=== PATIENT | female | born 1980 | race Two or more races ===

== ENCOUNTER 2016-09-25 19:54 | Inpatient (IN) | payer MEDICAID ==
[~2016-09-25] VITALS: Ht 157.5 cm; Wt 95.5 kg
[2016-09-25] MEDS ORDERED: OXYTOCIN 30U/ 0.9% NaCL 500ML 500 ML IV ONE (20:03)
[2016-09-25] MEDS: D5%-LACTATED RINGERS 1,000 ML IV SCH (20:03)
[2016-09-25] MEDS: LACTATED RINGERS 1,000 ML IV SCH ×4 (20:17→22:17)
[2016-09-25] MEDS ORDERED: NEWBORN KIT ONE (20:26)
[2016-09-25] MEDS ORDERED: FENTANYL PF 100 MCG/2ML IV PRN (20:30)
[2016-09-25] MEDS ORDERED: FENTANYL PF 100 MCG/2ML IVPush PRN (20:30)
[2016-09-25] MEDS ORDERED: PLEASE ENTER HEIGHT AND WEIGHT MC SCH (20:30)
[2016-09-25] MEDS ORDERED: CALCIUM CARBONATE 500 MG TAB.CHEW PO PRN (20:30)
[2016-09-25] MEDS ORDERED: ONDANSETRON 2MG/ML, 2ML IVPush PRN (20:30)
[2016-09-25] MEDS ORDERED: PLEASE ENTER ALLERGIES MC SCH ×2 (20:30)
[2016-09-25] MEDS ORDERED: LIDOCAINE 1%, 20ML ONE (20:33)
[2016-09-25] MEDS ORDERED: MISOPROSTOL 200 MCG TABLET ONE (20:33)
[2016-09-25] MEDS ORDERED: LIDOCAINE/PF 1.5%-EPI 1:200K, 30ML ONE (20:40)
[2016-09-25 21:16] VITALS: BP 131/82
[2016-09-25] MEDS ORDERED: FENTANYL/BUPIV./NS/PF 250 ML EPIDCONT SCH ×2 (21:21→22:07)
[2016-09-25] MEDS ORDERED: LACTATED RINGERS 1,000 ML IVBOLUS PRN ×2 (21:30→22:30)
[2016-09-25] MEDS ORDERED: FENTANYL/BUPIV./NS/PF 250 ML EPIDCONT ONE (22:01)
[2016-09-26] MEDS ORDERED: IBUPROFEN 800 MG TABLET ONE (00:29)
[2016-09-26] MEDS: IBUPROFEN 800 MG TABLET PO PRN ×3 (00:35→23:36)
[2016-09-26 01:30] VITALS: BP 126/71
[2016-09-26 03:15] VITALS: BP 106/66
[2016-09-26] MEDS ORDERED: OXYTOCIN 30U/ 0.9% NaCL 500ML 500 ML ONE (03:35)
[2016-09-26] MEDS: D5%-LACTATED RINGERS 1,000 ML IV SCH (04:03)
[2016-09-26] MEDS: LACTATED RINGERS 1,000 ML IV SCH ×2 (05:21→06:07)
[2016-09-26 06:40] VITALS: BP 108/71
[2016-09-26] MEDS ORDERED: OXYTOCIN 30U/ 0.9% NaCL 500ML 500 ML IV SCH (15:54)
[2016-09-26] MEDS ORDERED: ACETAMINOPHEN 325 MG TABLET PO PRN (16:00)
[2016-09-26] MEDS ORDERED: MISOPROSTOL 200 MCG TABLET PR PRN (16:00)
[2016-09-26] MEDS ORDERED: OXYcodone IR 5MG TABLET PO PRN ×2 (16:00)
[2016-09-26] MEDS ORDERED: CALCIUM CARBONATE 500 MG TAB.CHEW PO PRN (16:00)
[2016-09-26] MEDS ORDERED: METHYLERGONOVINE 0.2 MG/ML IM PRN (16:00)
[2016-09-26 19:34] VITALS: BP 108/68
[2016-09-26] MEDS ORDERED: DIPH,PERTUSS(ACELL),TET VAC/PF NC IM-VACC ONE (23:30)
[2016-09-26] MEDS: DOCUSATE 100 MG CAPSULE PO PRN (23:36)
[2016-09-27 07:58] VITALS: BP 120/68
[2016-09-27] MEDS ORDERED: PRENATAL VIT/IRON/FA 1 EACH TABLET PO SCH (09:00)
[2016-09-27] MEDS: DOCUSATE 100 MG CAPSULE PO PRN (09:21)
[2016-09-27] MEDS: IBUPROFEN 800 MG TABLET PO PRN (09:21)
[2016-09-27] MEDS ORDERED: IBUP-1222 PO (10:40)
== END 2016-09-27 16:10 | disposition home or self-care (01) | DRG 774 ==
LOC: LDOP 19:54 → LDIP 20:08 → 2NW 09-26 01:24
PROVIDERS: ADMIT Obstetrics & Gynecology Gynecology; ATTEND Obstetrics & Gynecology Gynecology
PROC: 10E0XZZ Delivery of Products of Conception, External Approach (ICD-10-PCS; principal; 2016-09-25)
PROC: 00HU33Z Insertion of Infusion Device into Spinal Canal, Percutaneous Approach (ICD-10-PCS; 2016-09-25)
PROC: 3E0R3CZ (ICD-10-PCS; 2016-09-25)
DX: O76 Abnormality in fetal heart rate and rhythm complicating labor and delivery (principal); O72.1 Other immediate postpartum hemorrhage; Z37.0 Single live birth; Z3A.37 37 weeks gestation of pregnancy; Q90.9 Down syndrome, unspecified; Z23 Encounter for immunization
CPT/HCPCS: 36415; 82803; 85025; 86850; 86900; 90715; J3490; J2590; J7120